=== PATIENT | male | born 1965 | race Asian ===

== ENCOUNTER 2016-04-02 16:44 | Emergency (ER) | payer BC ==
[~2016-04-02] VITALS: Ht 165.1 cm; Wt 71.6 kg
[2016-04-02 16:54] VITALS: Ht 165.1 cm; Wt 71.6 kg
[2016-04-02] MEDS ORDERED: KETOROLAC TROMETHAMINE 30 MG/ML VIAL IV STA (17:52)
[2016-04-02] MEDS ORDERED: SODIUM CHLORIDE 0.9% 1000ML 1,000 ML IV STA (17:52)
[2016-04-02] MEDS ORDERED: ONDANSETRON INJ 2 MG/ML 2 ML VIAL IV STA (17:52)
[2016-04-02] MEDS ORDERED: TAMSULOSIN HCL 0.4 MG CAP PO ONE (18:00)
[2016-04-02 18:24] LABS: BASO % 0.6 %; BASO ABS # 0.04 K/uL (0-0.2); COMPLETE YES; EOS % 3.2 %; HEMATOCRIT 45.5 % (42-52); IG% 0.2 %; LYMPH % 23.5 %; LYMPH ABS # 1.52 K/uL (1.2-3.4); MEAN CELL VOLUME 85.4 fL (80-100); MEAN CORPUSCULAR HEMOGLOBIN 29.8 pg (25-34); MEAN CORPUSCULAR HGB CONC 34.9 g/dl (32-36); MEAN PLATELET VOLUME 11.7 fL (7.4-10.4); MONO % 6.8 %; NEUT % 65.7 %; PLATELET COUNT 169 K/uL (130-400); RED BLOOD COUNT 5.33 M/uL (4.7-6.1); WHITE BLOOD COUNT 6.48 K/uL (4.8-10.8)
[2016-04-02 18:37] LABS: URINE APPEARANCE CLEAR (CLEAR); URINE BILIRUBIN NEG (NEG); URINE COLOR YELLOW; URINE EPITHELIAL CELL AUTO 0-5 /lpf (0-5); URINE NITRITE NEG (NEG); URINE SPECIFIC GRAVITY > 1.045 (1.000-1.030); UROBILINOGEN NEG (NEG); ZZUR CULT IF INDIC CLEAN CATCH NO
[2016-04-02 18:38] LABS: BUN/CREATININE RATIO 15.8 (10-20); CALCIUM 9.2 mg/dl (8.5-10.1); CREATININE 0.99 mg/dl (0.60-1.40); MANUAL MICROSCOPIC REQUIRED? NO; POTASSIUM 3.8 mmol/L (3.5-5.1); REVIEW REQ? NO
[2016-04-02] MEDS ORDERED: OXYC-57 PO (19:39)
[2016-04-02] MEDS ORDERED: TAMS0.4C38 PO (19:39)
--- NOTE | 2016-04-02 19:41 | EMERGENCY ROOM VISIT NOTE ---
History Report prepared by Lilliana: Susan Parks Under the Supervision of: Dr. Kaushik De La Garza D.O. First contact with patient: 17:48 Chief Complaint: KIDNEY STONE Stated Complaint: RT URETRAL CALCUS AT THE LF LEVEL History of Present Illness The patient is a 50 year old male who presents to the Emergency Room with complaints of persistent right sided flank pain that started last night. He states he currently feels better here in the ED and rates his discomfort as a 0/ 10. He saw his primary care physician and had a CT scan performed earlier today , which showed a right ureteral calculus. The patient admits he has experienced stones in the past, but states the last time he experienced one was approximately 11 years ago, and he saw Dr. Knutson, who has since retired. Source of History: patient Onset: last night Position: back (right sided flank) Symptom Intensity: 0/10 Timing: other (persistent) Review of Systems See HPI for pertinent positives & negatives. A total of 10 systems reviewed and were otherwise negative. Past Medical & Surgical Medical Problems: (1) Kidney stones Social History Smoking Status: Never Smoker Alcohol Use: occasionally Drug Use: none Marital Status: Housing Status: lives with family Occupation Status: employed Current/Historical Medications Scheduled Tamsulosin Hcl (Flomax), 0.4 MG PO HS Scheduled PRN Oxycodone/Acetaminophen 5MG/325MG (Percocet 5MG/325MG), 1 TAB PO Q6H PRN for Pain Allergies Coded Allergies: No Known Allergies (Unverified , 04/02/16) Physical Exam Vital Signs Date Time Temp Pulse Resp B/P Pulse Ox O2 Delivery O2 Flow Rate FiO2 04/02/16 19:24 60 20 171/74 98 Room Air 04/02/16 16:54 37.0 67 17 126/79 95 Room Air Physical Exam CONSTITUTIONAL/VITAL SIGNS: Reviewed / noted above. GENERAL: Non-toxic in appearance. INTEGUMENTARY: Warm, dry, and [place]. HEAD: Normocephalic. EYES: without scleral icterus or trauma. ENT/OROPHARYNX: clear and moist. LYMPHADENOPATHY/NECK: Is supple without lymphadenopathy or meningismus. RESPIRATORY: Lungs clear and equal. CARDIOVASCULAR: Regular rate and rhythm. GI/ABDOMEN: Soft and nontender. No organomegaly or pulsatile mass. No rebound or guarding. Normal bowel sounds. EXTREMITIES: Warm and well perfused. BACK: No CVA tenderness. NEUROLOGICAL: Intact without focal deficits. PSYCHIATRIC: normal affect. MUSCULOSKELETAL: Normally developed with good muscle tone. Medical Decision & Procedures ER Provider Diagnostic Interpretation: This CT scan was reviewed and interpreted by the radiologist and reviewed by myself. CT ABD/PELVIS IV AND ORAL CONT IMPRESSION: 1. 7 x 4 x 3 mm proximal right ureteral calculus at the L5 level with minor secondary obstructive changes 2. 6 mm nonobstructing upper pole right renal calculus which may lie within a calyceal diverticulum 3. No evidence of bowel obstruction. No evidence of free air. No evidence of acute appendicitis. Electronically signed by: Russ Pascual M.D. 04/02/2016 4:15 PM Laboratory Results 04/02/16 18:10 Red Blood Count 5.33, Mean Corpuscular Volume 85.4, Mean Corpuscular Hemoglobin 29.8, Mean Corpuscular Hemoglobin Concent 34.9, Mean Platelet Volume 11.7, Neutrophils (%) (Auto) 65.7, Lymphocytes (%) (Auto) 23.5, Monocytes (%) (Auto) 6.8, Eosinophils (%) (Auto) 3.2, Basophils (%) (Auto) 0.6, Neutrophils # (Auto) 4.26, Lymphocytes # (Auto) 1.52, Monocytes # (Auto) 0.44, Eosinophils # (Auto) 0.21, Basophils # (Auto) 0.04 04/02/16 18:10 Test 04/02/16 18:10 White Blood Count 6.48 K/uL (4.8-10.8) Red Blood Count 5.33 M/uL (4.7-6.1) Hemoglobin 15.9 g/dL (14.0-18.0) Hematocrit 45.5 % (42-52) Mean Corpuscular Volume 85.4 fL (80-100) Mean Corpuscular Hemoglobin 29.8 pg (25-34) Mean Corpuscular Hemoglobin Concent 34.9 g/dl (32-36) Platelet Count 169 K/uL (130-400) Mean Platelet Volume 11.7 fL (7.4-10.4) Neutrophils (%) (Auto) 65.7 % Lymphocytes (%) (Auto) 23.5 % Monocytes (%) (Auto) 6.8 % Eosinophils (%) (Auto) 3.2 % Basophils (%) (Auto) 0.6 % Neutrophils # (Auto) 4.26 K/uL (1.4-6.5) Lymphocytes # (Auto) 1.52 K/uL (1.2-3.4) Monocytes # (Auto) 0.44 K/uL (0.11-0.59) Eosinophils # (Auto) 0.21 K/uL (0-0.5) Basophils # (Auto) 0.04 K/uL (0-0.2) RDW Standard Deviation 40.5 fL (36.4-46.3) RDW Coefficient of Variation 13.0 % (11.5-14.5) Immature Granulocyte % (Auto) 0.2 % Immature Granulocyte # (Auto) 0.01 K/uL (0.00-0.02) Urine Color YELLOW Urine Appearance CLEAR (CLEAR) Urine pH 6.0 (4.5-7.5) Urine Specific [place] > 1.045 (1.000-1.030) Urine Protein NEG (NEG) Urine Glucose (UA) NEG (NEG) Urine Ketones NEG (NEG) Urine Occult Blood NEG (NEG) Urine Nitrite NEG (NEG) Urine Bilirubin NEG (NEG) Urine Urobilinogen NEG (NEG) Urine Leukocyte Esterase NEG (NEG) Urine WBC (Auto) 1-5 /hpf (0-5) Urine RBC (Auto) 0-4 /hpf (0-4) Urine Hyaline Casts (Auto) 0 /lpf (0-5) Urine Epithelial Cells (Auto) 0-5 /lpf (0-5) Urine Bacteria (Auto) NEG (NEG) Anion Gap 7.0 mmol/L (3-11) Est Creatinine Clear Calc Drug Dose 75.9 ml/min Estimated GFR () 101.1 Estimated GFR (Non- 87.2 BUN/Creatinine Ratio 15.8 (10-20) Calcium Level 9.2 mg/dl (8.5-10.1) Laboratory results as stated above per my review. Medications Administered Medications (Trade) Dose Ordered Sig/Jaz Route Start Time Stop Time Status Last Admin Dose Admin Sodium Chloride (Nss 1000ml) 1,000 ml @ 999 mls/hr Q1H1M STAT IV 04/02/16 17:52 04/02/16 18:52 DC 2/24/17 18:07 999 MLS/HR Ondansetron HCl (Zofran Inj) 4 mg NOW STAT IV 04/02/16 17:52 04/02/16 17:54 DC 04/02/16 18:07 4 MG Ketorolac Tromethamine (Toradol Inj) 30 mg NOW STAT IV 04/02/16 17:52 04/02/16 17:54 DC 04/02/16 18:07 30 MG Tamsulosin HCl (Flomax Cap) 0.4 mg NOW ONCE PO 04/02/16 18:00 04/02/16 18:01 DC 04/02/16 18:07 0.4 MG ED Course 174: Previous medical records were reviewed. The patient was evaluated in room B3. A complete history and physical examination was performed. 175: Toradol 30 mg IV, Zofran 4 mg IV, NSS 1000 ml @ 999 mls/hr IV. 1800: Flomax 0.4 mg PO. 1934: I reevaluated the patient. I discussed his results and discharge instructions and he verbalized complete understanding and agreement. Medical Decision Differential considered: pancreatitis, hepatitis, or acute cholecystitis, AAA, UTI, pyelonephritis, kidney stones, appendicitis, diverticulitis, shingles, bowel obstruction mesenteric ischemia, intussusception,hernia, testicular torsion. Is a 50-year-old male who presents to the ED with a chief complaint of a kidney stone. The patient had some flank pain yesterday on the right side as well as some right sided abdominal pain. He had a CT scan earlier today that showed a 7 x 4 x 3 mm right proximal ureteral calculus with minimal obstructive changes. The patient was referred to the ER. His symptoms are minimal. He is having minimal pain. CBC is normal. PRP is normal. Urine did not show infection. The patient remained a symptomatically CBC stay. He was treated with IV Zofran and IV fluids and IV Toradol. He was given oral Flomax. Referral for urology given. Urine strainer was given. He was discharged on Flomax and Motrin. Prescription for Percocet for severe pain. Impression Primary Impression: Renal colic on right side Scribe Attestation The scribe's documentation has been prepared under my direction and personally reviewed by me in its entirety. I confirm that the note above accurately reflects all work, treatment, procedures, and medical decision making performed by me. Departure Information Dispostion Home / Self-Care Prescriptions Tamsulosin Hcl (FLOMAX) 0.4 Mg Cap 0.4 MG PO HS, #10 CAP Prov: Kaushik De La Garza D.O. 04/02/16 Oxycodone/Acetaminophen 5MG/325MG (PERCOCET 5MG/325MG) Tab 1 TAB PO Q6H Y for Pain, #20 TAB Prov: Kaushik De La Garza D.O. 04/02/16 Referrals Denia Woodruff C.R.N.PJennifer (PCP) Patient Instructions Kidney Stones, My [facility] Additional Instructions Strain urine for stone. Follow-up with urology. Dr. Goran Lewis noted above. Take ibuprofen 600 mg every 6 hours for pain. Flomax as prescribed. Percocet as prescribed for severe pain. No driving within 6 hours of use. Do not take additional Tylenol while taking Percocet.
[2016-04-02 19:52] VITALS: BP 171/74; PULSE 60; TEMP 37; O2SAT 98
== END 2016-04-02 19:55 | disposition home or self-care (01) ==
LOC: C.EDB 16:44
DX: N23 Unspecified renal colic (principal)

== ENCOUNTER → 2016-04-02 | Outpatient (CLI) | payer BC ==
[~2016-04-02] MED LIST: OPTIRAY 320 IV PRN; OXYC-57 PO; TAMS0.4C38 PO
--- NOTE | 2016-04-02 16:16 | DIAGNOSTIC IMAGING REPORT ---
CT ABD/PELVIS IV AND ORAL CONT CLINICAL HISTORY: Right lower quadrant abdominal pain COMPARISON STUDY: 05/13/2005 TECHNIQUE: Following the IV administration of 92 mL of Optiray-320, CT scan of the abdomen and pelvis was performed from the lung bases to the proximal femurs. Images are reviewed in the axial, sagittal, and coronal planes. IV contrast was administered without complication. CT DOSE: 271.79 mGy.cm FINDINGS: Lower chest: The heart is normal in size and configuration, without pericardial effusion. The lung bases and pleural spaces are clear. Liver: The contrast-enhanced liver is normal in size, contour, and attenuation. There is no intrahepatic biliary ductal dilatation. The hepatic veins and portal veins are patent. Gallbladder: Unremarkable. Spleen: Normal in size and attenuation. Pancreas: Unremarkable. Adrenal glands: Unremarkable. Kidneys: There is a nonobstructing 6 mm upper pole right renal calculus which may lie within a calyceal diverticulum. There is mild right-sided hydronephrosis. There is a 7 x 4 x 3 mm proximal right ureteral calculus at the L5 level. Bowel: There are no transition zones indicate bowel obstruction. There is no evidence of acute appendicitis. Peritoneum: There is no intraperitoneal free air or abdominal ascites. Vasculature: The abdominal aorta is normal in course and caliber. Adenopathy: None. Pelvic viscera: The bladder, and pelvic viscera are unremarkable. Skeletal structures: No destructive osseous lesions are seen. IMPRESSION: 1. 7 x 4 x 3 mm proximal right ureteral calculus at the L5 level with minor secondary obstructive changes 2. 6 mm nonobstructing upper pole right renal calculus which may lie within a calyceal diverticulum 3. No evidence of bowel obstruction. No evidence of free air. No evidence of acute appendicitis. Electronically signed by: Russ Pascual M.D. 04/02/2016 4:15 PM Dictated Date/Time: 04/02/2016 4:10 PM
== END | disposition home or self-care (01) ==
LOC: C.CTS 13:34
PROVIDERS: ATTEND Nurse Practitioner Family
DX: R10.31 Right lower quadrant pain (principal); M54.9 Dorsalgia, unspecified; N20.0 Calculus of kidney; N20.1 Calculus of ureter

== ENCOUNTER → 2016-12-24 | Outpatient (CLI) | payer BC | END | disposition home or self-care (01) | LOC: C.PATHSPEC 15:32 | PROVIDERS: ATTEND Urology | DX: N20.2 Calculus of kidney with calculus of ureter (principal); R31.0 Gross hematuria ==

== ENCOUNTER → 2016-12-27 | Outpatient (CLI) | payer BC ==
[~2016-12-27] MED LIST changes: +OPTIRAY 300 IV PRN; -OPTIRAY 320 IV PRN; -OXYC-57 PO; -TAMS0.4C38 PO
--- NOTE | 2016-12-27 15:17 | DIAGNOSTIC IMAGING REPORT ---
IVP W/OR W/O TOMOGRAMS CLINICAL HISTORY: N20.0 [id number] Gross [id number] Ureteric stone COMPARISON STUDY: CT scan dated 04/02/2016 FINDINGS: The renal shadows are partially obscured overlying bowel gas and fecal material. There is a 5 mm intrarenal calculus on the right and a 3 mm intrarenal calculus on the left. There is no pathologic bowel dilatation. The patient was injected with 100 cc of Optiray 300. The 1 minute film reveals prompt bilateral nephrograms. There is prompt bilateral excretion. Single nondilated ureters drain each kidney. No collecting system filling defects are visualized. There is no significant calyceal displacement. No ureteral filling defects were visualized. There is a very small post void residual. No obstructive changes are evident. IMPRESSION: Bilateral nephrolithiasis. No obstructing calculi are visualized. Electronically signed by: Russ Pascual M.D. 12/27/2016 3:16 PM Dictated Date/Time: 12/27/2016 3:14 PM
== END | disposition home or self-care (01) ==
LOC: C.RAD 13:30
PROVIDERS: ATTEND Urology
DX: N20.0 Calculus of kidney (principal); N20.1 Calculus of ureter; R31.0 Gross hematuria

== ENCOUNTER → 2017-02-10 | Outpatient (CLI) | payer OTHER | END | disposition home or self-care (01) | LOC: C.LABSPEC 10:51 | PROVIDERS: ATTEND Urology | DX: R31.0 Gross hematuria (principal) ==

== ENCOUNTER → 2017-03-30 | Outpatient (CLI) | payer OTHER ==
[~2017-03-30] MED LIST changes: +CIPR-255 PO; -OPTIRAY 300 IV PRN; +OXYC7.5T65 PO
[2017-03-30 17:02] LABS: BASO ABS # 0.06 K/uL (0-0.2); EOS % 5.4 %; EOS ABS # 0.31 K/uL (0-0.5); HEMOGLOBIN 16.6 g/dL (14.0-18.0); LYMPH ABS # 2.13 K/uL (1.2-3.4); MEAN CELL VOLUME 86.4 fL (80-100); MEAN CORPUSCULAR HEMOGLOBIN 30.5 pg (25-34); MEAN CORPUSCULAR HGB CONC 35.3 g/dl (32-36); MONO % 5.6 %; MONO ABS # 0.32 K/uL (0.11-0.59); NEUT ABS # 2.94 K/uL (1.4-6.5); PLATELET COUNT 168 K/uL (130-400); RED CELL DISTRIBUTION WIDTH CV 12.7 % (11.5-14.5); RED CELL DISTRIBUTION WIDTH SD 40.3 fL (36.4-46.3); WHITE BLOOD COUNT 5.76 K/uL (4.8-10.8)
[2017-03-30 17:28] LABS: BLOOD UREA NITROGEN 18 mg/dl (7-18); CARBON DIOXIDE 30 mmol/L (21-32); CREATININE 1.09 mg/dl (0.60-1.40); POTASSIUM 4.4 mmol/L (3.5-5.1); SODIUM 139 mmol/L (136-145)
== END | disposition home or self-care (01) ==
LOC: C.RAD 16:30
PROVIDERS: ATTEND Urology
DX: N20.0 Calculus of kidney (principal)

== ENCOUNTER → 2017-03-31 | Outpatient (CLI) | payer OTHER ==
--- NOTE | 2017-03-31 15:18 | DIAGNOSTIC IMAGING REPORT ---
TWO VIEW CHEST CLINICAL HISTORY: Preoperative examination. Nephrolithiasis. FINDINGS: PA and lateral chest radiographs are compared to study dated 05/26/2015. The heart is mildly enlarged. The pulmonary vasculature is noncongested. Chronic interstitial thickening is similar to previous. The lungs and pleural spaces are clear. There is no pneumothorax. The bony thorax appears intact. IMPRESSION: Mild cardiac enlargement with no active disease in the chest. Electronically signed by: Hemant Griggs M.D. 03/31/2017 3:17 PM Dictated Date/Time: 03/31/2017 3:16 PM
--- NOTE | 2017-03-31 15:22 | DIAGNOSTIC IMAGING REPORT ---
KUB HISTORY: NEPHROLITHIASIS COMPARISON: IVP 12/27/2016. Abdomen and pelvis CT 04/02/2016. FINDINGS: Moderate stool within the colon. No evidence for bowel obstruction. Stable 5 mm stone within the upper pole the right kidney. No definite left renal calculi. There is a new 8 mm calcification within the left deep pelvis consistent with a left ureterovesical junction stone. No right ureteral calculi. No pneumoperitoneum or pneumatosis. IMPRESSION: 1. An 8 mm stone within the left ureterovesical junction. 2. Stable right-sided nephrolithiasis. Electronically signed by: Maverick Levin M.D. 03/31/2017 3:20 PM Dictated Date/Time: 03/31/2017 3:19 PM
== END | disposition home or self-care (01) ==
LOC: C.RAD 14:02
PROVIDERS: ATTEND Urology
DX: N20.0 Calculus of kidney (principal); N20.1 Calculus of ureter

== ENCOUNTER → 2017-04-01 | Day surgery (SDC) | payer OTHER ==
[2017-03-31 08:26] VITALS: Ht 162.6 cm; Wt 68.2 kg
[~2017-04-01] VITALS: Ht 162.6 cm; Wt 68.2 kg
[~2017-04-01] MED LIST changes: +ATROPINE SULFATE 0.1 MG/ML 5ML SYR IV PRN; +CIPROFLOXACIN 400MG / D5W IV SCH; +DEXAMETHASONE SOD INJ 4 MG/ML VIAL IV PRN; +DEXAMETHASONE SOD INJ 4 MG/ML VIAL ONE; +EpHEDrine SULFATE INJ 50 MG/ML AMP IV PRN; +FENTANYL CITRATE INJ 50 MCG/1 ML 2 ML VIAL IV PRN; +FENTANYL CITRATE INJ 50 MCG/1 ML 2 ML VIAL ONE; +KETOROLAC TROMETHAMINE 30 MG/ML VIAL IV. PRN; +LABETALOL HCL IV 5 MG/ML 20ML IV PRN; +LACTATED RINGER'S 1000ML 1,000 ML IV SCH; +LIDOCAINE HCL 2% 2 ML VIAL (20MG/ML) ONE; +METOCLOPRAMIDE HCL INJ 5 MG/ML 2 ML VIAL IV PRN; +MIDAZOLAM HCL 1 MG/ML 2ML VIAL ONE; +MoRPHine SULFATE 10 MG/ML CARP/VIAL IV PRN; +ONDANSETRON INJ 2 MG/ML 2 ML VIAL IV PRN; +ONDANSETRON INJ 2 MG/ML 2 ML VIAL ONE; +OXYCODONE/ACETAMINOPHEN 7.5-325 TAB PO PRN; +PHENYLEPHRINE 100MCG/ML 5ML SYR IV PRN; +PROPOFOL IV EMULSION 10 MG/ML 20 ML VIAL IV ONE; +ROCURONIUM BROMIDE 10 MG/ML 5 ML VIAL IV ONE; +SUCCINYLCHOLINE CHLORIDE 20 MG/ML 10 ML VIAL IV ONE
--- NOTE | 2017-04-01 07:04 | History & Physical Bridge Note ---
H&P Re-Evaluation Bridge Note: I have examined the patient, reviewed the History & Physical and in the interval since the performance of the History & Physical I have noted the following changes of clinical significance: No changes noted
--- NOTE | 2017-04-01 08:11 | Discharge Instructions ---
Discharge Instructions Date of Service Apr 01, 2017. Admission Reason for Admission: Stones Discharge Discharge Diagnosis / Problem: Stone Discharge Goals Goal(s): Decrease discomfort, Improve function Activity Recommendations Activity Limitations: resume your previous activity Lifting Limitations: gradually increase as tolerated Exercise/Sports Limitations: gradually increase as tolerated . Instructions / Follow-Up Instructions / Follow-Up May have blood in urine. May have pelvic discomfort. May have flank pain or bruising. Call if any issues or fever. Current Hospital Diet Patient's current hospital diet: Discharge Diet Recommended Diet: Regular Diet Procedures Procedures Performed: R ESWL Pending Studies Studies pending at discharge: no (a) Medical Emergencies . Who to Call and When: Medical Emergencies: If at any time you feel your situation is an emergency, please call 911 immediately. . Non-Emergent Contact Non-Emergency issues call your: Primary Care Provider, Urologist Call Non-Emergent contact if: you have a fever, temperature is above 101, temperature is above 101.5, your pain is not controlled, your pain is worsening , your pain is unusual for you . . "Provider Documentation" section prepared by Randy Galicia,. . VTE Core Measure Inpt VTE Proph given/why not?: SCD's
--- NOTE | 2017-04-01 08:36 | [facility] Operative Report ---
Operative Report Operative Date Apr 01, 2017. Pre-Operative Diagnosis Right Stone Post-Operative Diagnosis Same Procedure(s) Performed Right ESWL Surgeon General Estimated Blood Loss Minimal Findings Right stone in renal pelvis. Specimens None Drains None Anesthesia Type General Complication(s) none Disposition Recovery Room / PACU Indications Right stone. Risks and benefits discussed at length. Description of Procedure Patient was consented and brought back to the operating room. Patient was placed under anesthesia in the supine position. Patient was prepped and draped in the regular sterile fashion. A time out was completed. With the time out completed, The patient was assessed with fluoroscopy. The stone was identified and position was triangulated. At this point, the shock waves commenced. The stone was monitored throughout the process with fluoroscopy to assess progression and maintain position. The stone was pulverized with 2500 shocks at a maximum voltage of 5. With the stone treated, the procedure ended. The patient was cleaned, aroused from anesthesia, and transferred to the pacu in stable condition having tolerated the procedure well with no complications. I was present and participated in all aspects of the procedure. The patient will be monitored in the PACU until transferred. I attest to the content of the Intraoperative Record and any orders documented therein. Any exceptions are noted below.
[2017-04-01 09:18] VITALS: TEMP 36.4
[2017-04-01 09:40] VITALS: BP 147/86; PULSE 60; O2SAT 99
--- NOTE | 2017-04-01 09:53 | Anesthesia Progress Nt - [facility] ---
Anesthesia Post Op Note Date & Time Apr 01, 2017 at 09:53 Vital Signs Pain Intensity: 0 Vital Signs Past 12 Hours Date Time Temp Pulse Resp B/P (MAP) Pulse Ox O2 Delivery O2 Flow Rate FiO2 04/01/17 09:40 60 18 147/86 (106) 99 Room Air 04/01/17 09:18 36.4 63 18 143/83 (103) 96 Room Air 04/01/17 09:13 36.6 62 16 162/88 98 Room Air 04/01/17 09:07 69 21 98 04/01/17 09:07 65 21 04/01/17 09:06 162/88 04/01/17 09:04 156/88 04/01/17 09:02 67 22 04/01/17 09:02 67 22 100 04/01/17 09:01 169/97 04/01/17 08:57 68 15 178/98 100 04/01/17 08:57 69 15 04/01/17 08:56 168/97 04/01/17 08:52 64 16 04/01/17 08:52 64 16 100 04/01/17 08:51 166/93 04/01/17 08:47 63 14 04/01/17 08:47 63 14 100 04/01/17 08:46 62 15 04/01/17 08:46 62 15 166/89 100 04/01/17 08:44 169/91 04/01/17 08:43 167/91 04/01/17 08:42 163/125 04/01/17 08:41 36.2 67 12 167/91 100 Mask 04/01/17 06:34 36.4 55 16 106/71 (83) 98 Room Air Notes Mental Status: alert / awake / arousable, participated in evaluation Pt Amnestic to Procedure: Yes Nausea / Vomiting: adequately controlled Pain: adequately controlled Airway Patency, RR, SpO2: stable & adequate BP & HR: stable & adequate Hydration State: stable & adequate Anesthetic Complications: no major complications apparent
== END | disposition home or self-care (01) ==
LOC: X.SURG 06:19
PROVIDERS: ATTEND Urology
DX: N20.0 Calculus of kidney (principal); N20.1 Calculus of ureter; R31.29 Other microscopic hematuria; Z82.49 Family history of ischemic heart disease and other diseases of the circulatory system

== ENCOUNTER → 2017-04-07 | Outpatient (CLI) | payer OTHER ==
[~2017-04-07] MED LIST changes: -ATROPINE SULFATE 0.1 MG/ML 5ML SYR IV PRN; -CIPROFLOXACIN 400MG / D5W IV SCH; -DEXAMETHASONE SOD INJ 4 MG/ML VIAL IV PRN; -DEXAMETHASONE SOD INJ 4 MG/ML VIAL ONE; -EpHEDrine SULFATE INJ 50 MG/ML AMP IV PRN; -FENTANYL CITRATE INJ 50 MCG/1 ML 2 ML VIAL IV PRN; -FENTANYL CITRATE INJ 50 MCG/1 ML 2 ML VIAL ONE; -KETOROLAC TROMETHAMINE 30 MG/ML VIAL IV. PRN; -LABETALOL HCL IV 5 MG/ML 20ML IV PRN; -LACTATED RINGER'S 1000ML 1,000 ML IV SCH; -LIDOCAINE HCL 2% 2 ML VIAL (20MG/ML) ONE; -METOCLOPRAMIDE HCL INJ 5 MG/ML 2 ML VIAL IV PRN; -MIDAZOLAM HCL 1 MG/ML 2ML VIAL ONE; -MoRPHine SULFATE 10 MG/ML CARP/VIAL IV PRN; -ONDANSETRON INJ 2 MG/ML 2 ML VIAL IV PRN; -ONDANSETRON INJ 2 MG/ML 2 ML VIAL ONE; -OXYCODONE/ACETAMINOPHEN 7.5-325 TAB PO PRN; -PHENYLEPHRINE 100MCG/ML 5ML SYR IV PRN; -PROPOFOL IV EMULSION 10 MG/ML 20 ML VIAL IV ONE; -ROCURONIUM BROMIDE 10 MG/ML 5 ML VIAL IV ONE; -SUCCINYLCHOLINE CHLORIDE 20 MG/ML 10 ML VIAL IV ONE
--- NOTE | 2017-04-07 16:10 | DIAGNOSTIC IMAGING REPORT ---
KUB CLINICAL HISTORY: 51 years-old Male presenting with N20.0 [id number]. TECHNIQUE: Single supine view of the abdomen was obtained. COMPARISON: 03/31/[address] from 04/02/2016. FINDINGS: Nonobstructive bowel gas pattern. No gross pneumoperitoneum. The distal left ureteral calculus now projects more towards the midline, potentially within the bladder lumen. Redemonstration of right renal calculi. Osseous structures normal. IMPRESSION: 1. Slight progression of the distal left ureteral calculus, which may potentially be within the gallbladder lumen or impacted at the left ureterovesical junction. The fact that this calculus is not exactly midline suggests against a bladder luminal location. Electronically signed by: Tyshawn Peres M.D. 04/07/2017 4:08 PM Dictated Date/Time: 04/07/2017 4:06 PM
== END | disposition home or self-care (01) ==
LOC: C.RAD 15:45
PROVIDERS: ATTEND Urology
DX: N20.0 Calculus of kidney (principal)

== ENCOUNTER → 2017-04-27 | Outpatient (CLI) | payer OTHER ==
--- NOTE | 2017-04-27 10:54 | DIAGNOSTIC IMAGING REPORT ---
KUB CLINICAL HISTORY: NEPHROLITHIASIS COMPARISON STUDY: 04/07/2017 FINDINGS: There is moderate fecal retention. The renal shadows are largely obscured overlying bowel gas and fecal material. Granular opacities projected over the right renal shadow likely represent calculi. There is a stable 7 mm left pelvic basin calcification, likely representing a distal left ureteral calculus. IMPRESSION: 1. Fecal retention 2. Right-sided nephrolithiasis 3. 7 mm left pelvic basin calcification suspicious for a distal left ureteral calculus Electronically signed by: Russ Pascual M.D. 04/27/2017 10:52 AM Dictated Date/Time: 04/27/2017 10:49 AM
== END | disposition home or self-care (01) ==
LOC: C.RAD 10:24
PROVIDERS: ATTEND Urology
DX: N20.0 Calculus of kidney (principal)

== ENCOUNTER → 2017-05-25 | Outpatient (CLI) | payer OTHER ==
--- NOTE | 2017-05-25 18:38 | DIAGNOSTIC IMAGING REPORT ---
KUB CLINICAL HISTORY: 52 years-old Male presenting with N20.0 [id number] Ureteric stone. TECHNIQUE: Single supine view of the abdomen was obtained. COMPARISON: 04/27/2017. FINDINGS: Moderate stool burden throughout the colon. Mild gaseous distention of the stomach. No convincing evidence of bowel obstruction or gross pneumoperitoneum allowing for supine technique. The presence of stool and bowel gas significantly degraded evaluation for renal calculi. Allowing for this, redemonstration of the calculus projecting over the upper pole of the right kidney. No radiographic evidence of left renal calculi. No calcifications along the courses of the ureters. The previously noted calcification along the course of the distal left ureter is no longer present. Bone island suggested in the right femoral head. Lung bases clear. IMPRESSION: 1. Right renal calculus, unchanged. No radiographic evidence of left renal or ureteral calculi. Electronically signed by: Tyshawn Peres M.D. 05/25/2017 6:37 PM Dictated Date/Time: 05/25/2017 6:35 PM
== END | disposition home or self-care (01) ==
LOC: C.RAD 18:11
PROVIDERS: ATTEND Urology
DX: N20.0 Calculus of kidney (principal); N20.1 Calculus of ureter